=== PATIENT | male | born 1945 | race Caucasian/White ===

== ENCOUNTER 2018-08-16 09:31 | Day surgery (SDC) | payer OTHER ==
[2018-08-11 16:44] VITALS: BMI 40.0
[2018-08-16] MEDS ORDERED: PROPOFOL 20 ML ONE (10:27)
[2018-08-16 11:07] VITALS: TEMP 98.1
[2018-08-16 11:24] VITALS: BP 166/75; PULSE 74
== END 2018-08-16 11:48 | disposition home or self-care (01) ==
LOC: FASU-ENDO 09:31
PROVIDERS: ATTEND Internal Medicine Gastroenterology
PROC: 0DJD8ZZ Inspection of Lower Intestinal Tract, Via Natural or Artificial Opening Endoscopic (ICD-10-PCS; principal; 2018-08-16 10:30)
DX: Z12.11 Encounter for screening for malignant neoplasm of colon (principal)

== ENCOUNTER 2024-03-16 08:07 | Day surgery (SDC) | payer OTHER, MEDICARE ==
[2024-03-15 14:38] VITALS: BMI 36.6
[2024-03-16] MEDS: TROPICAMIDE 1% OPHTH SOLN 15 ML BOTTLE ONE (08:40)
[2024-03-16] MEDS: CYCLOPENTOLATE 2% OPHTH SOLN 2 ML BOTTLE ONE (08:40)
[2024-03-16] MEDS: PHENYLEPHRINE 2.5% OPTHALMIC DROP 2ML BOTTLE ONE (08:40)
[2024-03-16] MEDS: CIPROFLOXACIN 0.3% EYE DROPS 5 ML BOTTLE ONE (08:40)
[2024-03-16] MEDS ORDERED: TETRACAINE 0.5% OPHTH SOLN 2 ML BOTTLE ONE (08:45)
[2024-03-16] MEDS ORDERED: EPINEPHrine/PF 1 MG/1 ML (1:1,000) AMPULE ONE (08:45)
[2024-03-16] MEDS ORDERED: LIDOCAINE 1% P/F 10 MG/ML VIAL ONE (08:45)
[2024-03-16] MEDS ORDERED: CARBACHOL 0.01% INTRA-OCULAR 1.5 ML VIAL ONE (08:45)
[2024-03-16] MEDS ORDERED: BSS (NA/CA/MG/K) BALANCED SALT SOLUTION OPHTH SOLN 15 ML BOTTLE ONE (08:45)
[2024-03-16] MEDS ORDERED: NEO/POLYMYX B SULF/DEXAMETH OPHTHALMIC 5ML BOTTLE ONE (08:46)
[2024-03-16] MEDS ORDERED: MIDAZOLAM HCL 2 MG/2 ML SINGLE DOSE VIAL ONE (09:39)
[2024-03-16 10:44] VITALS: RESP 18; TEMP 97.5
[2024-03-16 11:01] VITALS: BP 133/86; PULSE 57
== END 2024-03-16 11:05 | disposition home or self-care (01) ==
LOC: FASU 08:07
PROVIDERS: ATTEND Ophthalmology
PROC: 08RK3JZ Replacement of Left Lens with Synthetic Substitute, Percutaneous Approach (ICD-10-PCS; principal; 2024-03-16 10:13)
DX: H26.8 Other specified cataract (principal)
CPT/HCPCS: 66984; V2632